=== PATIENT | female | born 1960 | race Caucasian/White ===

== ENCOUNTER 2018-07-08 22:33 | Emergency (ER) | payer OTHER ==
[2018-07-08] MEDS ORDERED: Albuterol/Ipratropium 3.0-0.5 MG/3 ML Neb Soln NEB ONE (22:47)
[2018-07-08] MEDS ORDERED: methylPREDNISolone Sodium Succinate 125 MG/2 ML SDV IVPUSH ONE (22:47)
--- NOTE | 2018-07-08 22:56 | EDM.PDOC ---
ED HPI GENERAL MEDICAL PROBLEM - General Chief Complaint: Allergic Reaction Stated Complaint: AMBULANCE-UNKNOWN Time Seen by Provider: 07/08/18 22:53 Source of Information: Reports: Patient, EMS History Limitations: Reports: No Limitations - History of Present Illness INITIAL COMMENTS - FREE TEXT/NARRATIVE: EMS arrived with pt wheezing SOB and gave 2x epi + 1x benadryl en route. pt had some improvements. - Related Data Allergies Allergy/AdvReac Type Severity Reaction Status Date / Time aspirin Allergy Hives Verified 04/15/18 14:32 honey Allergy Anaphylactic Verified 07/08/18 23:40 Shock nut - unspecified Allergy Anaphylactic Verified 07/08/18 23:40 Shock shellfish derived Allergy Anaphylactic Verified 07/08/18 23:40 Shock Home Meds: Home Meds . [No Known Home Meds] 04/15/18 [History] Past Medical History HEENT History: Reports: Impaired Vision Gastrointestinal History: Reports: Other (See Below) Other Gastrointestinal History: crohns Oncologic (Cancer) History: Reports: Breast - Past Surgical History Oncologic Surgical History: Reports: Mastectomy Social & Family History - Family History Family Medical History: Noncontributory - Caffeine Use Caffeine Use: Reports: None ED ROS ALLERGIC REACTION - Review of Systems Review Of Systems: ROS reveals no pertinent complaints other than HPI. ED EXAM GENERAL NO PERIP PULSE - Physical Exam Exam: See Below Exam Limited By: No Limitations General Appearance: Alert, Mild Distress, Thin Ears: Hearing Grossly Normal Throat/Mouth: Normal Voice, No Airway Compromise Head: Atraumatic Neck: Non-Tender, Full Range of Motion Respiratory/Chest: Decreased Breath Sounds, Rhonchi, Wheezing Cardiovascular: Regular Rate, Rhythm GI/Abdominal: Soft, Non-Tender Neurological: Alert, Oriented, Normal Cognition Psychiatric: Flat Affect Skin Exam: Warm, Dry, Normal Color Course - Vital Signs Last Recorded V/S: Last Vital Signs Temp 36.3 C 07/08/18 23:21 Pulse 92 07/08/18 23:21 Resp 19 07/08/18 23:21 BP 105/43 L 07/08/18 23:21 Pulse Ox 100 07/08/18 23:21 - Orders/Labs/Meds Orders: Active Orders 24 hr Category Date Time Status EKG Documentation Completion [RC] STAT Care 07/08/18 22:56 Active RT Aerosol Therapy [RC] ASDIRECTED Care 07/08/18 22:47 Active RT Aerosol Therapy [RC] ASDIRECTED Care 07/08/18 23:11 Active Sodium Chloride 0.9% [Normal Saline] 1,000 ml Med 07/08/18 23:45 Active IV ASDIRECTED Medication Orders Sodium Chloride (Normal Saline) 1,000 mls @ 75 mls/hr IV ASDIRECTED HOLLY Last Admin: 07/08/18 23:34 Dose: 75 mls/hr Labs: Laboratory Tests 07/08/18 07/08/18 Range/Units 22:55 22:55 WBC 7.3 (5.0-10.0) 10^3/uL RBC 3.85 L (4.2-5.4) 10^6/uL Hgb 12.1 (12.0-16.0) g/dL Hct 37.4 (37.0-47.0) % MCV 97.1 (80-100) fL MCH 31.4 (27.0-34.0) pg MCHC 32.4 L (33.0-35.0) g/dL Plt Count 226 (150-450) 10^3/uL Neut % (Auto) 46.4 (42.2-75.2) % Lymph % (Auto) 41.6 (20.5-50.1) % Leslie % (Auto) 9.4 H (2-8) % Eos % (Auto) 2.3 (1.0-3.0) % Baso % (Auto) 0.3 (0.0-1.0) % Sodium 138 (135-145) mmol/L Potassium 2.6 L (3.6-5.0) mmol/L Chloride 101 (101-111) mmol/L Carbon Dioxide 27.0 (21.0-31.0) mmol/L Anion Gap 12.6 BUN 16 (7-18) mg/dL Creatinine 0.9 (0.6-1.3) mg/dL Est Cr Clr Drug Dosing 59.87 mL/min Estimated GFR (MDRD) > 60 BUN/Creatinine Ratio 17.77 Glucose 233 H (74-105) mg/dL Calcium 8.5 (8.4-10.2) mg/dl Total Bilirubin 0.8 (0.2-1.0) mg/dL AST 29 (10-42) IU/L ALT 19 (10-60) IU/L Alkaline Phosphatase 91 (42-121) IU/L Troponin I < 0.02 (0.00-0.02) ng/ml Total Protein 6.5 L (6.7-8.2) g/dl Albumin 3.6 (3.2-5.5) g/dl Globulin 2.9 Albumin/Globulin Ratio 1.24 Meds: Medications Generic Name Dose Route Start Last Admin Trade Name Freq PRN Reason Stop Dose Admin Sodium Chloride 1,000 mls @ 75 mls/hr 07/08/18 23:45 07/08/18 23:34 Normal Saline IV 75 mls/hr ASDIRECTED HOLLY Administration Discontinued Medications Generic Name Dose Route Start Last Admin Trade Name Freq PRN Reason Stop Dose Admin Albuterol/Ipratropium 3 ml 07/08/18 22:47 07/08/18 23:00 Duoneb 3.0-0.5 Mg/3 Ml NEB 07/08/18 22:48 3 ml ONETIME ONE Administration Dexamethasone 12 mg 07/08/18 23:25 07/08/18 23:30 Dexamethasone IVPUSH 07/08/18 23:26 12 mg ONETIME ONE Administration Dexamethasone Confirm 07/08/18 23:26 07/08/18 23:31 Dexamethasone Administered 07/08/18 23:27 Not Given Dose 12 mg .ROUTE .STK-MED ONE Famotidine 20 mg 07/08/18 23:29 07/08/18 23:34 Pepcid IVPUSH 07/08/18 23:30 20 mg ONETIME ONE Administration Methylprednisolone Sodium Succinate 125 mg 07/08/18 22:47 07/08/18 22:59 Solu-Medrol IVPUSH 07/08/18 22:48 125 mg ONETIME ONE Administration Racepinephrine 0.5 ml 07/08/18 23:11 07/08/18 23:12 S-2 2.25% NEB 07/08/18 23:12 0.5 ml ONETIME ONE Administration Racepinephrine Confirm 07/08/18 23:11 07/08/18 23:31 S-2 2.25% Administered 07/08/18 23:12 Not Given Dose 0.5 ml .ROUTE .STK-MED ONE - Re-Assessments/Exams Free Text/Narrative Re-Assessment/Exam: 07/09/18 00:[address] Ohara @ [facility] who kindly accepted pt. Departure - Departure Time of Disposition: 00:01 Disposition: DC/Tfer to Acute Hospital 02 Condition: Fair Clinical Impression: Anaphylaxis Qualifiers: Encounter type: initial encounter Qualified Code(s): T78.2XXA - Anaphylactic shock, unspecified, initial encounter - Discharge Information Forms: Interfacility Transfer EMTALA - My Orders Last 24 Hours: My Active Orders 07/08/18 22:47 RT Aerosol Therapy [RC] ASDIRECTED 07/08/18 22:56 EKG Documentation Completion [RC] STAT 07/08/18 23:11 RT Aerosol Therapy [RC] ASDIRECTED 07/08/18 23:45 Sodium Chloride 0.9% [Normal Saline] 1,000 ml IV ASDIRECTED - Assessment/Plan Last 24 Hours: My Active Orders 07/08/18 22:47 RT Aerosol Therapy [RC] ASDIRECTED 07/08/18 22:56 EKG Documentation Completion [RC] STAT 07/08/18 23:11 RT Aerosol Therapy [RC] ASDIRECTED 07/08/18 23:45 Sodium Chloride 0.9% [Normal Saline] 1,000 ml IV ASDIRECTED
[2018-07-08] MEDS ORDERED: EPINEPHrine 1 MG/ML SDV SUBCUT ONE (23:09)
[2018-07-08] MEDS ORDERED: Racepinephrine 2.25% 0.5 ML Neb Soln NEB ONE (23:11)
[2018-07-08] MEDS ORDERED: Racepinephrine 2.25% 0.5 ML Neb Soln ONE (23:11)
[2018-07-08 23:22] LABS: ANION GAP 12.6; CHLORIDE,CL 101 mmol/L (101-111); SODIUM,NA 138 mmol/L (135-145)
[2018-07-08] MEDS ORDERED: Dexamethasone 4 MG/ML SDV IVPUSH ONE (23:25)
[2018-07-08] MEDS ORDERED: Dexamethasone 4 MG/ML SDV ONE (23:26)
[2018-07-08] MEDS ORDERED: Famotidine 20 MG/2 ML SDV IVPUSH ONE (23:29)
[2018-07-08] MEDS ORDERED: Sodium Chloride 0.9% 1,000 ML IV SCH (23:45)
[2018-07-09 00:40] LABS: BASE EXCESS ARTERIAL 1 mmol/L ((-2)-(+3)); BICARBONATE,ARTERIAL 28.3 mmol/L (22-26); O2 DELIVERY DEVICE VENTILATOR; O2 SATURATION ARTERIAL 89 % (95-100); PCO2 ARTERIAL 59 mmHg (35-45); PO2 ARTERIAL 61 mmHg (70-100)
[2018-07-09 00:45] LABS: ALLEN TEST pos
[2018-07-09 02:35] LABS: BASE EXCESS ARTERIAL -4 mmol/L ((-2)-(+3)); BICARBONATE,ARTERIAL 20.9 mmol/L (22-26); O2 DELIVERY DEVICE VENTILATOR; O2 SATURATION ARTERIAL 98 % (95-100); PCO2 ARTERIAL 38 mmHg (35-45); PO2 ARTERIAL 94 mmHg (70-100)
[2018-07-09 02:38] LABS: ALLEN TEST pos
== END 2018-07-09 01:30 ==
LOC: DL.ED 22:33
DX: T78.2XXA Anaphylactic shock, unspecified, initial encounter (principal); Z88.8 Allergy status to other drugs, medicaments and biological substances; Z91.018 Allergy to other foods
CPT/HCPCS: 31500; 36415; 36600; 51702; 70360; 71045; 80053; 81001; 82803; 84484; 85025; 93005; 96361; 96372; 96374; 96375; 99285; J0171; J1100; J2930; J3490; J7030; J7620-GY